=== PATIENT | female | born 1975 | race Caucasian/White ===

== ENCOUNTER 2017-02-09 10:26 | Emergency (ER) | payer MEDICAID ==
[~2017-02-09] VITALS: Ht 157.5 cm; Wt 80.0 kg
[2017-02-09 10:30] VITALS: Ht 157.5 cm; Wt 80.0 kg
[2017-02-09] MEDS ORDERED: NITR-58 PO (10:46)
[2017-02-09] MEDS ORDERED: PHEN-616 PO (10:46)
--- NOTE | 2017-02-09 11:13 | ERD ---
ER Documentation Chief Complaint Date/Time DATE: 02/09/17 TIME: 11:13 Chief Complaint DYSURIA/HEMATURIA SINCE 0200 HPI 42-year-old female presents to the emergency department complaining of painful urination, urgency frequency since 2 AM last night. Patient denies any fever. She does admit to having mild, intermittent pelvic pain. She admits to having hematuria ROS All systems reviewed and are negative except as per history of present illness. Medications Home Meds Active Scripts Phenazopyridine Hcl* (Phenazopyridine Hcl*) 200 Mg Tablet, 200 MG PO TID, #20 TAB Prov:DIONTE MANE PA-C 02/09/17 Nitrofurantoin Monohyd Macrocr* (Macrobid*) 100 Mg Capsr, 100 MG PO BID for 7 Days, CAP Prov:DIONTE MANE PA-C 02/09/17 PMhx/Soc Medical and Surgical Hx: pt denies Medical Hx, pt denies Surgical Hx Hx Alcohol Use: No Hx Substance Use: No Hx Tobacco Use: No Smoking Status: Never smoker Physical Exam Vitals Vital Signs Date Time Temp Pulse Resp B/P Pulse Ox O2 Delivery O2 Flow Rate FiO2 02/09/17 10:30 98.2 79 18 130/62 99 Physical Exam General: well-developed/well-nourished, in no apparent distress, non-toxic appearing HENT: NC/AT Eyes: Conjunctiva normal Neck: Supple Pulm: CTA bilaterally, normal breathing CV: Normal S1S2 GI: Soft, non-distended, normal bowel sounds, TTP on suprapubic region Back: No midline tenderness, no masses, No CVAT Ext: No clubbing, cyanosis, or edema Neuro: Alert and orientated Skin: intact, normal turgor Psych: Normal mood and mentation Procedures/MDM This is a 42-year-old female presenting to the emergency department complaining of dysuria and hematuria since 2 AM which is likely due to a urinary tract infection. I will low suspicion for pyelonephritis, nephrolithiasis. Patient has stable vital signs, she appears well and stable to be discharged home. Prescription for Macrobid and Pyridium were provided. Discussed to follow-up with PCP. She understands and agrees with this plan Departure Diagnosis: Primary Impression: Dysuria Condition: Stable Patient Instructions: Dysuria, Understanding Urinary Tract Infections (UTIs) Additional Instructions: Visite a haines mdico maana para un EXAMEN.Regrese a estas instalaciones si no se mejora geetha esperbamos o geetha le dijimos. [place] toda la medicina lilliana y geetha se le indic. Regrese a estas instalaciones si no se mejora geetha esperbamos o geetha le dijimos. DIONTE MANE PA-C Feb 09, 2017 11:13
== END 2017-02-09 11:39 | disposition home or self-care (01) ==
LOC: FTE 10:26
DX: R30.0 Dysuria (principal); R10.2 Pelvic and perineal pain
CPT/HCPCS: 99283